=== PATIENT | female | born 1985 | race Two or more races ===

== ENCOUNTER → 2025-07-22 | Outpatient (CLI) | payer MEDICAID, SELFPAY ==
[2025-07-22 13:54] VITALS: PULSE 77; PULSE 78; RESP 18; O2SAT 99
[2025-07-22] MEDS: ALBUTEROL RT 2.5 MG/3 ML NEBU INH (13:54)
== END | disposition home or self-care (01) ==
PROVIDERS: PCP Emergency Medicine; Referring Provider Emergency Medicine; Visit Provider Emergency Medicine
DX: R06.02 Shortness of breath (principal)
CPT/HCPCS: 94060; 94640; 94726; 94729